=== PATIENT | male | born 1955 | race Caucasian/White ===

== ENCOUNTER → 2018-08-22 14:00 | Outpatient (CLI) | payer SELFPAY ==
--- NOTE | 2018-08-22 14:02 | DI.RAD.S_ITS ---
PROCEDURE: XR LUMBAR SPINE MIN 4V INDICATIONS: chronic LBP TECHNIQUE: 5 views of the lumbar spine were acquired. COMPARISON: None. FINDINGS: Bones: Size nonrib-bearing vertebrae are present. There is mildly levoscoliotic bony alignment with convex leftward curvature centered at L3-L4.. No vertebral body compression fractures. No suspicious bony lesions. Degenerative disc disease along the lumbosacral spine is relatively mild, best seen at L3-4 and L4-5. Soft tissues: Overlying bowel gas pattern is normal. No suspicious soft tissue calcifications. Oblique images: No pars defects. IMPRESSION: Mild convex leftward scoliosis centered at L3-4. Relatively mild degenerative disc disease best seen at the middle third of the lumbosacral spine as noted, without evidence of prior trauma or subluxation. Dictated by: Corona Chaney M.D. on 08/22/2018 at 14:37 Approved by: Corona Chaney M.D. on 08/22/2018 at 14:38
== END ==
PROVIDERS: Visit Provider Physical Medicine & Rehabilitation
DX: M54.5 Low back pain (principal); M51.37 Other intervertebral disc degeneration, lumbosacral region; M41.86 Other forms of scoliosis, lumbar region; G89.29 Other chronic pain
CPT/HCPCS: 72110